=== PATIENT | male | born 1950 | race Caucasian/White ===

== ENCOUNTER → 2017-04-19 | Outpatient (CLI) | payer MEDICARE, BC ==
[~2017-04-19] MED LIST: BUFFERIN EX ST500 MG PO; LEVEMIR FL100 UNIT/1 SQ; LOSARTAN POTASS50 MG PO; METOPROLOL TAR25 MG PO; NORVASC PO; NOVOLOG FL100 UNIT/1 SQ; NOVOLOG100 U/M2 SQ; SIMVASTATIN40 MG PO; VITAMIN D3 PO
--- NOTE | ~2017-04-19 | US136 ---
[facility] A Service of [facility] & [facility] RADIOLOGY TEXT RESULTS PATIENT: LUH TOSCANO LOCATION: CNIV : 50 UNIT #: [id number] AGE: [address]: Sri Yeager SEX: M ORDER DR: [id number] [facility] [address] [place], [place] [address] [id number] O MR#: [id number] Acc #: [id number] NAME: LUH TOSCANO : 1950 SEX: M STUDY DATE/TIME: 04/19/2017 8:47 UNIT: CNIV ROOM: STUDY DESCRIPTION: U/L [facility] Art Study [facility] Bil Attending Physician: Sri Yeager A.P.R.N. Referring Physician: Sri Yeager A.P.R.N. Ordering Physician: Sri Yeager A.P.R.N. Primary Care Physician: Killian Wheeler M.D. MEDICAL IMAGING REPORT This report is preliminary unless electronic signature is present EXAM Ankle-brachial indices HISTORY Peripheral vascular disease. FINDINGS Waveforms are dampened on the right side and normal on the left side. Right brachial pressure is 184, and left brachial pressure is 190. On the right side, dorsalis pedis is noncompressible. Posterior tibial is 86 and great toe is 45 for a right mndvd-yd-pokoikwa index of 0.45. On the left side, posterior tibial and dorsalis pedis is noncompressible and great toe is 69. Muhar-kd-qauobmtz index cannot be performed on the left side. IMPRESSION Patient has evidence of noncompressibility and waveform to indicate possibly a moderate disease on the right side and normal perfusion on the left side. Toe pressures are diminished on the right side and normal on the left. Clinical correlation is recommended. Dictated by... Jerry Nails M.D. THIS IS AN ELECTRONICALLY VERIFIED REPORT Jerry Nails M.D. at 04/23/2017 4:08 PM Tere TD: 04/19/2017 15:18 JOB #: [id number] MEDICAL IMAGING REPORT [facility] A Service of [facility] & [facility] RADIOLOGY TEXT RESULTS PATIENT: LUH TOSCANO LOCATION: CNIV : 50 UNIT #: [id number] AGE: [address]: Sri Yeager SEX: M ORDER DR: Page 1 of 1 COPY
== END | disposition home or self-care (01) ==
LOC: CNIV 08:33
DX: I73.9 Peripheral vascular disease, unspecified (principal)
CPT/HCPCS: 93922

== ENCOUNTER → 2017-07-29 | Outpatient (CLI) | payer MEDICARE, BC ==
--- NOTE | ~2017-07-29 | US83 ---
[facility] A Service of [facility] & [facility] RADIOLOGY TEXT RESULTS PATIENT: LUH TOSCANO LOCATION: CNIV : 50 UNIT #: [id number] AGE: [address]: Sri Yeager SEX: M ORDER DR: [id number] [facility] [address] [place], [place] [address] [id number] O MR#: [id number] Acc #: [id number] NAME: LUH TOSCANO : 1950 SEX: M STUDY DATE/TIME: 07/29/2017 13:12 UNIT: CNIV ROOM: STUDY DESCRIPTION: [facility] [employer] Attending Physician: Sri Yeager A.P.R.N. Referring Physician: Sri Yeager A.P.R.N. Ordering Physician: Sri Yeager A.P.R.N. Primary Care Physician: Killian Wheeler M.D. MEDICAL IMAGING REPORT This report is preliminary unless electronic signature is present EXAM Left lower extremity arterial duplex HISTORY Peripheral vascular disease. FINDINGS Duplex imaging of the left lower extremity was performed. The common femoral artery is patent with triphasic waveforms and velocity of 109 cm/sec. Superficial femoral artery is patent with triphasic waveforms and velocity of 113 proximally, 100 cm/sec mid-portion, 93 cm/sec distally. There is a popliteal stent which is patent. Velocity in the popliteal stent is 81, mid-portion is 122, and distally is 240 cm/sec. There appears to be some plaque at the distal end of the stent in the popliteal artery. Velocity in the popliteal artery just beyond this plaque is 138 cm/sec, posterior tibial runoff is seen at 47 cm/sec. IMPRESSION The left popliteal artery stent is widely patent. There is plaque seen in the popliteal artery just distal tot extrahepatic stent with mildly increased velocities. Dictated by... Jerry Nails M.D. THIS IS AN ELECTRONICALLY VERIFIED REPORT Jerry Nails M.D. at 07/30/2017 3:31 PM SA/aa TD: 07/30/2017 13:18 [facility] A Service of [facility] & [facility] RADIOLOGY TEXT RESULTS PATIENT: LUH TOSCANO LOCATION: [facility] : 50 UNIT #: [id number] AGE: [address]: Sri Yeager SEX: M ORDER DR: JOB #: [id number] MEDICAL IMAGING REPORT Page 1 of 1 COPY
--- NOTE | ~2017-07-29 | US136 ---
[facility] A Service of [facility] RADIOLOGY TEXT RESULTS PATIENT: LUH TOSCANO LOCATION: CNIV : 50 UNIT #: [id number] AGE: [address]: Sri Yeager SEX: M ORDER DR: [id number] [facility] [address] [place], [place] [address] [id number] O MR#: [id number] Acc #: [id number] NAME: LUH TOSCANO : 1950 SEX: M STUDY DATE/TIME: 07/29/2017 12:34 UNIT: CNIV ROOM: STUDY DESCRIPTION: U/L [facility] Art Study [facility] Bil Attending Physician: Sri Yeager A.P.R.N. Referring Physician: Sri Yeager A.P.R.N. Ordering Physician: Sri Yeager A.P.R.N. Primary Care Physician: Killian Wheeler M.D. MEDICAL IMAGING REPORT This report is preliminary unless electronic signature is present EXAM Ankle-brachial indices. HISTORY Peripheral vascular disease. FINDINGS Pulse-volume recordings are dampened at the right ankle and normal in the left ankle. Velocity waveforms are biphasic on the right side and on the left side. Right brachial pressure is 181 and left brachial pressure is 163 mmHg. On the right side, dorsalis pedis is noncompressible. Posterior tibial is 131. Great toe is 47 for a right MEL over the posterior tibial is 0.72. On the left side, posterior tibial and dorsalis pedis are noncompressible and great toe is 74 and MEL cannot be measured. IMPRESSION The patient has evidence of noncompressibility and ABIs are not reliable. Waveforms and toe pressures indicate possibly moderate peripheral vascular disease on the right side and mild peripheral vascular disease or normal perfusion on the left side. Dictated by.Bill Nails M.D. [facility] A Service of [facility] RADIOLOGY TEXT RESULTS PATIENT: LUH TOSCANO LOCATION: CNIV : 50 UNIT #: [id number] AGE: [address]: Sri Yeager SEX: M ORDER DR: THIS IS AN ELECTRONICALLY VERIFIED REPORT Jerry Nails M.D. at 07/30/2017 3:31 PM Ankit TD: 07/30/2017 12:44 JOB #: [id number] MEDICAL IMAGING REPORT Page 1 of 1 COPY
== END | disposition home or self-care (01) ==
LOC: CNIV 11:55
DX: I73.9 Peripheral vascular disease, unspecified (principal); I70.8 Atherosclerosis of other arteries; Z95.828 Presence of other vascular implants and grafts
CPT/HCPCS: 93922; 93926